=== PATIENT | female | born 1960 | race Caucasian/White ===

== ENCOUNTER 2023-10-07 13:41 | Observation (INO) | payer BC ==
[2023-10-07] MEDS ORDERED: Sodium Chloride 0.9% 1000 ML 1,000 ML IV STA (13:52)
[2023-10-07] MEDS ORDERED: Sodium Chloride 0.9% 1000 ML 1,000 ML ONE (13:55)
--- NOTE | 2023-10-07 14:02 | ERPHSYRPT ---
- History of Present Illness Time Seen by Provider: 10/07/23 13:50 Source: patient, family Exam Limitations: no limitations Patient Subjective Stated Complaint: Pt states "I have been having palpitations and today they seem really fast." Triage Nursing Assessment: Pt presented alert and oriented X 3, skin pwd. PT ambulates with an upright steady gait, able to speak in clear full sentences. pt resting comfortably on the bed without incident. Physician History: 62yo f presents after feeling palpitations starting this AM, roughly 4h prior to presentation. Pt states she has been feeling these palpiations intermittently for several months, but today states her heart rate feels much faster today. Pt's daughter believes she has been sob, pt states she does not feel sob. Pt has seen pcp for these palpitations and is undergoing further w/u w/ cardiology appt scheduled as well as echocardiogram. Pt currently denies any sob, cp, n/v, diaphoresis, ENG, blurry vision. Timing/Duration: today Activities at Onset: none Quality: other (palpitations) Location: other (no pain) Chest Pain Radiation: no radiation Severity of Pain-Max: none Severity of Pain-Current: none Modifying Factors: Improves With: nothing Nitro Today/Relief: no nitro taken today Aspirin Treatment Today: no aspirin today Associated Symptoms: No nausea, No vomiting, No abdominal pain, No shortness of breath, No diaphoresis, No chest pain, No fever, No headaches, No syncope Allergies/Adverse Reactions: No Known Drug Allergies Allergy (Verified 10/07/23 13:53) Home Medications: Alendronate Sodium [Fosamax] 70 mg PO DAILY 10/07/23 [History] Multivitamin 1 each PO DAILY 10/07/23 [History] Hx Tetanus, Diphtheria Vaccination/Date Given: No Hx Influenza Vaccination/Date Given: Yes Hx Pneumococcal Vaccination/Date Given: No Immunizations Up to Date: No Travel Risk - International Travel Have you traveled outside of the country in past 3 weeks: No - Coronavirus Screening Are you exhibiting any of the following symptoms?: No Close contact with a COVID-19 positive Pt in past 14-21 Days: No - Vaccine Status Have you recieved a Covid-19 vaccination: Yes [employer]: [employer] - Vaccination Dates Date of 2cond Vaccination (if applicable): 2020 - Review of Systems Constitutional: No Fever, No Chills, No Fatigue Respiratory: No Symptoms Cardiac: Palpitations, No Chest Pain, No Edema Abdominal/Gastrointestinal: No Abdominal Pain, No Nausea, No Vomiting, No Diarrhea Genitourinary Symptoms: No Dysuria, No Frequency, No Hematuria - Past Medical History Pertinent Past Medical History: Yes Neurological History: No Pertinent History ENT History: No Pertinent History Cardiac History: High Cholesterol Respiratory History: No Pertinent History Endocrine Medical History: No Pertinent History Musculoskeletal History: No Pertinent History GI Medical History: No Pertinent History History: No Pertinent History Psycho-Social History: No Pertinent History Female Reproductive Disorders: Breast Cancer - Past Surgical History Past Surgical History: Yes Other Surgical History: masectomy. tonsils. tubal - Social History Smoking Status: Never smoker Exposure to second hand smoke: No Drug Use: none Patient Lives Alone: Yes - Nursing Vital Signs Nursing Vital Signs: Initial Vital Signs Temperature 97.6 F 10/07/23 13:42 Pulse Rate 173 H 10/07/23 13:42 Respiratory Rate 18 10/07/23 13:42 Blood Pressure 111/96 10/07/23 13:42 O2 Sat by Pulse Oximetry 99 10/07/23 13:42 Pain Scale Pain Intensity 0 - Physical Exam General Appearance: no apparent distress, alert Respiratory Exam: normal breath sounds, lungs clear, airway intact, No chest tenderness Cardiovascular Exam: tachycardia, capillary refill <2 sec, No murmur, No irregular, No edema Gastrointestinal/Abdomen Exam: soft, No tenderness, No distention SpO2 Interpretation: normal SpO2: 99 O2 Delivery: Room Air - Course EKG Interpreted by Me: RATE (174), SVT, Other (no significant ST changes, not suggestive of ischemia) Rhythm Strip: SVT Ordered Tests: Active Orders 24 hr Category Date Time Status Head Cleaning Porter STAT Care 10/07/23 13:54 Active EKG-ER Only STAT Care 10/07/23 13:52 Active IV Insertion STAT Care 10/07/23 13:54 Active Pulse Oximetry (ED) STAT Care 10/07/23 13:52 Active CBC W DIFF Stat Lab 10/07/23 13:50 Completed CMP Stat Lab 10/07/23 13:50 Completed D-DIMER QUANTITATIVE Stat Lab 10/07/23 13:50 Completed NT PRO BNPII Stat Lab 10/07/23 13:50 Completed TROPONIN Q4H Lab 10/07/23 13:50 Completed TROPONIN Q4H Lab 10/07/23 18:00 Ordered TROPONIN Q4H Lab 10/07/23 22:00 Ordered Medication Summary Generic Name Dose Route Start Last Admin Trade Name Gustavo PRN Reason Stop Dose Admin Sodium Chloride 1,000 mls @ 75 mls/hr 10/07/23 14:45 10/07/23 14:42 Sodium Chloride 0.9% 1000 Ml IV 11/06/23 14:44 75 mls/hr .[id number] KRISTIN Administration Discontinued Medications Generic Name Dose Route Start Last Admin Trade Name Sawq PRN Reason Stop Dose Admin Diltiazem HCl 10 mg 10/07/23 14:21 10/07/23 14:22 Diltiazem 25 Mg/5 Ml Vial IV 10/07/23 14:22 Not Given ONCE ONE Diltiazem HCl 10 mg 10/07/23 14:22 10/07/23 14:22 Diltiazem Hcl Iv 5 Mg/Ml Vial IV 10/07/23 14:23 10 mg STAT ONE Administration Diltiazem HCl Confirm 10/07/23 14:21 Diltiazem Hcl Iv 5 Mg/Ml Vial Administered 10/07/23 14:22 Dose 50 mg IV .STK-MED ONE Sodium Chloride 1,000 mls @ 999 mls/hr 10/07/23 13:52 10/07/23 14:58 Sodium Chloride 0.9% 1000 Ml IV 10/07/23 14:52 Infused .Q1H1M STA Infusion Sodium Chloride Confirm 10/07/23 13:55 Sodium Chloride 0.9% 1000 Ml Administered 10/07/23 13:56 Dose 1,000 mls @ ud .ROUTE .STK-MED ONE Lab/Rad Data: Laboratory Result Diagrams 10/07/23 13:50 10/07/23 13:50 Laboratory Results 10/07/23 10/07/23 10/07/23 Range/Units 13:50 13:50 13:50 WBC (4.0-10.5) x10^3/uL RBC (4.1-5.4) x10^6/uL Hgb (12.0-16.0) g/dL Hct (35-47) % MCV (78-100) fL MCH (26-32) pg MCHC (32-36) g/dL RDW (11.5-14.0) % Plt Count (150-450) x10^3/uL MPV (7.5-11.0) fL Gran % (36.0-66.0) % Immature Gran % (Auto) (0.00-0.4) % Nucleat RBC Rel Count (0.00-0.1) % Eos # (Auto) (0-0.5) x10^3/uL Immature Gran # (Auto) (0.00-0.03) x10^3u/L Absolute Lymphs (auto) (1.0-4.6) x10^3/uL Absolute Monos (auto) (0.0-1.3) x10^3/uL Absolute Nucleated RBC (0.00-0.01) x10^3u/L Lymphocytes % (24.0-44.0) % Monocytes % (0.0-12.0) % Eosinophils % (0.00-5.0) % Basophils % (0.0-0.4) % Absolute Granulocytes (1.4-6.9) x10^3/uL Basophils # (0-0.4) x10^3/uL D-Dimer 0.22 (0.0-0.50) mg/L Sodium 139 (137-145) mmol/L Potassium 4.4 (3.5-5.1) mmol/L Chloride 105 (98-107) mmol/L Carbon Dioxide 23 (22-30) mmol/L Anion Gap 15.1 H (5-15) MEQ/L BUN 17 (7-17) mg/dL Creatinine 0.88 (0.52-1.04) mg/dL Estimated GFR 73.8 ML/MIN Glucose 162 H (74-106) mg/dL Calcium 9.6 (8.4-10.2) mg/dL Total Bilirubin 0.90 (0.2-1.3) mg/dL AST 37 H (14-36) U/L ALT 28 (0-35) U/L Alkaline Phosphatase 67 (38-126) U/L Troponin I < 0.012 (0.000-0.034) ng/mL NT-Pro-B Natriuret Pep 789 (<300) pg/mL Serum Total Protein 8.0 (6.3-8.2) g/dL Albumin 4.8 (3.5-5.0) g/dL 10/07/23 Range/Units 13:50 WBC 9.5 (4.0-10.5) x10^3/uL RBC 4.39 (4.1-5.4) x10^6/uL Hgb 14.2 (12.0-16.0) g/dL Hct 43.1 (35-47) % MCV 98.2 (78-100) fL MCH 32.3 H (26-32) pg MCHC 32.9 (32-36) g/dL RDW 12.4 (11.5-14.0) % Plt Count 227 (150-450) x10^3/uL MPV 10.5 (7.5-11.0) fL Gran % 75.1 H (36.0-66.0) % Immature Gran % (Auto) 0.3 (0.00-0.4) % Nucleat RBC Rel Count 0.0 (0.00-0.1) % Eos # (Auto) 0.03 (0-0.5) x10^3/uL Immature Gran # (Auto) 0.03 (0.00-0.03) x10^3u/L Absolute Lymphs (auto) 1.69 (1.0-4.6) x10^3/uL Absolute Monos (auto) 0.57 (0.0-1.3) x10^3/uL Absolute Nucleated RBC 0.00 (0.00-0.01) x10^3u/L Lymphocytes % 17.8 L (24.0-44.0) % Monocytes % 6.0 (0.0-12.0) % Eosinophils % 0.3 (0.00-5.0) % Basophils % 0.5 (0.0-0.4) % Absolute Granulocytes 7.14 H (1.4-6.9) x10^3/uL Basophils # 0.05 (0-0.4) x10^3/uL D-Dimer (0.0-0.50) mg/L Sodium (137-145) mmol/L Potassium (3.5-5.1) mmol/L Chloride (98-107) mmol/L Carbon Dioxide (22-30) mmol/L Anion Gap (5-15) MEQ/L BUN (7-17) mg/dL Creatinine (0.52-1.04) mg/dL Estimated GFR ML/MIN Glucose (74-106) mg/dL Calcium (8.4-10.2) mg/dL Total Bilirubin (0.2-1.3) mg/dL AST (14-36) U/L ALT (0-35) U/L Alkaline Phosphatase (38-126) U/L Troponin I (0.000-0.034) ng/mL NT-Pro-B Natriuret Pep (<300) pg/mL Serum Total Protein (6.3-8.2) g/dL Albumin (3.5-5.0) g/dL - Progress Progress: improved Air Movement: good Progress Note: 10/07/23 14:23 pt vitally stable, asymptomatic, HR improved slightly w/ fluid bolus will give diltiazem bolus, plan to avoid adenosine in elderly asymptomatic pt discussed possibility of admission w/ pt and daughter, both agreeable 10/07/23 14:38 10mg dilt bolus given - repeat ekg showed sinus rhythm 75bpm, no ST changes, qtcb 435 10/07/23 15:08 discussed admission w/ Dr Og who agrees to accept, admit to obs w/ tele Blood Culture(s) Obtained: No Antibiotics given: No Discussed with Dr.: Other (Dr Og) Will see patient in: hospital (observation) Counseled pt/family regarding: lab results, diagnosis, need for follow-up Medical Desision Making - Discussion of managment Care discussed with:: hospitalist Reviewed:: Test results, Need for additional workup Agreed on:: place in obs Will see patient: in hospital - Diagnostic Testing Diagnostic test were ordered, analyzed, and reviewed by me: Yes - Risk of complications The pt has a mod risk of morbidity or mortality based on: Need for prescription drug management - Departure Departure Disposition: Observation Clinical Impression: Sustained SVT Condition: Stable Critical Care Time: No Referrals: JANN NAVARRO NP [Primary Care Provider] - Follow up/PCP as directed
[2023-10-07 14:04] LABS: Absolute Neutrophil Ct (ANC) 7.14 x10^3/uL (1.4-6.9); BASOPHIL % 0.5 % (0.0-0.4); Basophil (Absolute #) 0.05 x10^3/uL (0-0.4); Eosinophil % 0.3 % (0.00-5.0); Eosinophil (Absolute #) 0.03 x10^3/uL (0-0.5); Hematocrit 43.1 % (35-47); Hemoglobin 14.2 g/dL (12.0-16.0); IMMATURE GRAN # 0.03 x10^3u/L (0.00-0.03); IMMATURE GRAN % 0.3 % (0.00-0.4); Lymphocyte (Absolute #) 1.69 x10^3/uL (1.0-4.6); Lymphocytes % 17.8 % (24.0-44.0); Mean Cell Volume 98.2 fL (78-100); Mean Corpuscular Hemoglobin 32.3 pg (26-32); Mean Corpuscular Hgb Concent. 32.9 g/dL (32-36); Mean Platelet Volume 10.5 fL (7.5-11.0); Monocyte (Absolute #) 0.57 x10^3/uL (0.0-1.3); Neutrophil % 75.1 % (36.0-66.0); Platelet Count 227 x10^3/uL (150-450); Red Blood Count 4.39 x10^6/uL (4.1-5.4); Red Cell Distribution Width 12.4 % (11.5-14.0); White Blood Count 9.5 x10^3/uL (4.0-10.5)
[2023-10-07 14:14] LABS: ALBUMIN 4.8 g/dL (3.5-5.0); ANION GAP 15.1 MEQ/L (5-15); BILIRUBIN,TOTAL 0.9 mg/dL (0.2-1.3); Calcium 9.6 mg/dL (8.4-10.2); Creatinine 1 0.88 mg/dL (0.52-1.04); EST GLOMERULAR FILTRATION RATE 73.8 ML/MIN; Potassium 4.4 mmol/L (3.5-5.1)
[2023-10-07] MEDS ORDERED: DILTIAZEM HCL 25 MG/5 ML VIAL IV ONE (14:21)
[2023-10-07] MEDS ORDERED: Cardizem IV 50 MG/10 ML IV ONE ×2 (14:21→14:22)
[2023-10-07 14:26] LABS: NT PRO BNPII 789 pg/mL (<300); TROPONIN < 0.012 ng/mL (0.000-0.034)
[2023-10-07] MEDS ORDERED: Sodium Chloride 0.9% 1000 ML 1,000 ML IV SCH (14:45)
--- NOTE | 2023-10-07 15:56 | PCM.HP ---
History of Present Illness - Chief Complaint Chief Complaint: svt Date: 10/07/23 History of Present Illness: Ms. Solorio is a 62 year old female with a pmhx of HLD and breast cancer who presented to ED 10/07/23 with complaints of racing heart with palpations. Patient reports that she has been having similar episodes for the past several months and is currently scheduled for further evaluation with cardiology. Daughter states she appears to have associated shortness of breath, patient states she does not feel short of breath. She has recently underwent stress test, echo, holter, and cxr. She is scheduled to see Rodriguez Palmer 11/26/23. Today she felt as if her heart was beating faster than previous episodes which prompted her to come to ED. Upon arrival, HR 173. Initial EKG interpreted by ED physician showing SVT with no ischemic changes, ST elevations/deviations HR 174. Patient was given 1 liter fluid bolus and diltiazem with noted improvement. Repeat EKG with NS and again with no ischemic changes, ST elevations/deviations. Lab findings showing BNP at 789, normal initial troponins. Plan for cardiac consult tomorrow and initiate metoprolol. - Review of Systems Constitutional: No Symptoms Eyes: No Symptoms Ears, Nose, & Throat: No Symptoms Respiratory: No Symptoms Cardiac: Other (palpitations intermittently) Abdominal/Gastrointestinal: No Symptoms Genitourinary Symptoms: No Symptoms Musculoskeletal: No Symptoms Skin: No Symptoms Neurological: No Symptoms Psychological: No Symptoms Endocrine: No Symptoms Hematologic/Lymphatic: No Symptoms Immunological/Allergic: No Symptoms Medications & Allergies Home Medications: Home Medication List Alendronate Sodium [Fosamax] 70 mg PO DAILY 10/07/23 [History Confirmed 10/07/23] Multivitamin 1 each PO DAILY 10/07/23 [History Confirmed 10/07/23] Allergies/Adverse Reactions: Allergies Allergy/AdvReac Type Severity Reaction Status Date / Time No Known Drug Allergies Allergy Verified 10/07/23 13:53 - Past Medical History Past Medical History: Yes Neurological History: No Pertinent History ENT History: No Pertinent History Cardiac History: High Cholesterol Respiratory History: No Pertinent History Endocrine Medical History: No Pertinent History Musculoskelatal History: No Pertinent History GI Medical History: No Pertinent History History: No Pertinent History Pyscho-Social History: No Pertinent History Reproductive Disorders: Breast Cancer - Past Surgical History Past Surgical History: Yes Other Surgical History: masectomy. tonsils. tubal - Social History Smoking Status: Never smoker Exposure to second hand smoke: No Alcohol: None Drug Use: none - Physical Exam Vital Signs: Vital Signs - 24 hr Temp Pulse Pulse Resp BP BP Pulse Ox 10/07/23 15:09 99 10/07/23 15:00 66 21 97/74 96 10/07/23 14:50 65 20 96/76 97 10/07/23 14:40 64 15 104/70 97 10/07/23 14:30 66 16 103/74 99 10/07/23 14:15 74 19 117/92 100 10/07/23 14:02 158 H 16 113/91 100 10/07/23 14:00 172 H 20 79/64 98 10/07/23 13:54 99 10/07/23 13:42 97.6 F 173 H 176 H 18 111/96 99 General Appearance: no apparent distress Neurologic Exam: alert, oriented x 3, cooperative Eye Exam: PERRL/EOMI Ears, Nose, Throat Exam: normal ENT inspection Neck Exam: normal inspection Respiratory Exam: normal breath sounds, lungs clear Cardiovascular Exam: regular rate/rhythm, normal heart sounds Gastrointestinal/Abdomen Exam: soft, normal bowel sounds Pelvic Exam: not done Rectal Exam: deferred Back Exam: normal inspection Extremity Exam: normal inspection Skin Exam: normal color Results - Labs Lab/Micro Results: Lab Results-Last 24 Hours 10/07/23 10/07/23 10/07/23 Range/Units 13:50 13:50 13:50 WBC 9.5 (4.0-10.5) x10^3/uL RBC 4.39 (4.1-5.4) x10^6/uL Hgb 14.2 (12.0-16.0) g/dL Hct 43.1 (35-47) % MCV 98.2 (78-100) fL MCH 32.3 H (26-32) pg MCHC 32.9 (32-36) g/dL RDW 12.4 (11.5-14.0) % Plt Count 227 (150-450) x10^3/uL MPV 10.5 (7.5-11.0) fL Gran % 75.1 H (36.0-66.0) % Immature Gran % (Auto) 0.3 (0.00-0.4) % Nucleat RBC Rel Count 0.0 (0.00-0.1) % Eos # (Auto) 0.03 (0-0.5) x10^3/uL Immature Gran # (Auto) 0.03 (0.00-0.03) x10^3u/L Absolute Lymphs (auto) 1.69 (1.0-4.6) x10^3/uL Absolute Monos (auto) 0.57 (0.0-1.3) x10^3/uL Absolute Nucleated RBC 0.00 (0.00-0.01) x10^3u/L Lymphocytes % 17.8 L (24.0-44.0) % Monocytes % 6.0 (0.0-12.0) % Eosinophils % 0.3 (0.00-5.0) % Basophils % 0.5 (0.0-0.4) % Absolute Granulocytes 7.14 H (1.4-6.9) x10^3/uL Basophils # 0.05 (0-0.4) x10^3/uL D-Dimer 0.22 (0.0-0.50) mg/L Sodium 139 (137-145) mmol/L Potassium 4.4 (3.5-5.1) mmol/L Chloride 105 (98-107) mmol/L Carbon Dioxide 23 (22-30) mmol/L Anion Gap 15.1 H (5-15) MEQ/L BUN 17 (7-17) mg/dL Creatinine 0.88 (0.52-1.04) mg/dL Estimated GFR 73.8 ML/MIN Glucose 162 H (74-106) mg/dL Calcium 9.6 (8.4-10.2) mg/dL Total Bilirubin 0.90 (0.2-1.3) mg/dL AST 37 H (14-36) U/L ALT 28 (0-35) U/L Alkaline Phosphatase 67 (38-126) U/L Troponin I (0.000-0.034) ng/mL NT-Pro-B Natriuret Pep (<300) pg/mL Serum Total Protein 8.0 (6.3-8.2) g/dL Albumin 4.8 (3.5-5.0) g/dL 10/07/23 Range/Units 13:50 WBC (4.0-10.5) x10^3/uL RBC (4.1-5.4) x10^6/uL Hgb (12.0-16.0) g/dL Hct (35-47) % MCV (78-100) fL MCH (26-32) pg MCHC (32-36) g/dL RDW (11.5-14.0) % Plt Count (150-450) x10^3/uL MPV (7.5-11.0) fL Gran % (36.0-66.0) % Immature Gran % (Auto) (0.00-0.4) % Nucleat RBC Rel Count (0.00-0.1) % Eos # (Auto) (0-0.5) x10^3/uL Immature Gran # (Auto) (0.00-0.03) x10^3u/L Absolute Lymphs (auto) (1.0-4.6) x10^3/uL Absolute Monos (auto) (0.0-1.3) x10^3/uL Absolute Nucleated RBC (0.00-0.01) x10^3u/L Lymphocytes % (24.0-44.0) % Monocytes % (0.0-12.0) % Eosinophils % (0.00-5.0) % Basophils % (0.0-0.4) % Absolute Granulocytes (1.4-6.9) x10^3/uL Basophils # (0-0.4) x10^3/uL D-Dimer (0.0-0.50) mg/L Sodium (137-145) mmol/L Potassium (3.5-5.1) mmol/L Chloride (98-107) mmol/L Carbon Dioxide (22-30) mmol/L Anion Gap (5-15) MEQ/L BUN (7-17) mg/dL Creatinine (0.52-1.04) mg/dL Estimated GFR ML/MIN Glucose (74-106) mg/dL Calcium (8.4-10.2) mg/dL Total Bilirubin (0.2-1.3) mg/dL AST (14-36) U/L ALT (0-35) U/L Alkaline Phosphatase (38-126) U/L Troponin I < 0.012 (0.000-0.034) ng/mL NT-Pro-B Natriuret Pep 789 (<300) pg/mL Serum Total Protein (6.3-8.2) g/dL Albumin (3.5-5.0) g/dL Assessment/Plan (1) Sustained SVT Current Visit: Yes Status: Acute Assessment & Plan: -Initial EKG with SVT, patient responded to fluid bolus/cardizem, repeat EKG NS -Recent holter/stress test/Echo as op -Cardiology consult, appreciate recs -metoprolol 25mg daily -TSH 09/28/23 WNL -Lipid panel 09/21/23 total choles at 205, LDL 127, consider statin -CXR 09/20/23 with no acute cardiopulmonary processes Code(s): I47.10 - SUPRAVENTRICULAR TACHYCARDIA, UNSPECIFIED (2) HLD (hyperlipidemia) Current Visit: Yes Status: Acute Assessment & Plan: -noted, does not take home meds Code(s): E78.5 - HYPERLIPIDEMIA, UNSPECIFIED (3) Elevated brain natriuretic peptide (BNP) level Current Visit: Yes Status: Acute Assessment & Plan: -BNP at 789 -Echo read pending -Cards consulted Code(s): R79.89 - OTHER SPECIFIED ABNORMAL FINDINGS OF BLOOD CHEMISTRY
[2023-10-07] MEDS ORDERED: TYLENOL 325 MG PO PRN (16:10)
[2023-10-07] MEDS ORDERED: Zofran 4 MG/2 ML VIAL IV PRN (16:10)
[2023-10-07] MEDS: Calcium 500MG W/Vit D Tablet PO SCH (21:46)
[2023-10-07] MEDS ORDERED: TABL PO SCH (22:00)
[2023-10-07] MEDS ORDERED: [UNRECOGNIZED DRUG - OTHER] PO SCH (22:00)
[2023-10-07] MEDS ORDERED: VITAMIN D3 PO SCH (22:00)
[2023-10-07] MEDS ORDERED: CALCIUM CARBONATE PO SCH (22:00)
[2023-10-08 02:29] LABS: Absolute Neutrophil Ct (ANC) 3.32 x10^3/uL (1.4-6.9); BASOPHIL % 0.5 % (0.0-0.4); Basophil (Absolute #) 0.03 x10^3/uL (0-0.4); Eosinophil % 1.2 % (0.00-5.0); Eosinophil (Absolute #) 0.07 x10^3/uL (0-0.5); Hematocrit 36.1 % (35-47); Hemoglobin 11.6 g/dL (12.0-16.0); IMMATURE GRAN # 0.01 x10^3u/L (0.00-0.03); IMMATURE GRAN % 0.2 % (0.00-0.4); Lymphocyte (Absolute #) 1.83 x10^3/uL (1.0-4.6); Mean Cell Volume 99.2 fL (78-100); Mean Corpuscular Hemoglobin 31.9 pg (26-32); Mean Corpuscular Hgb Concent. 32.1 g/dL (32-36); Mean Platelet Volume 10.6 fL (7.5-11.0); Monocyte (Absolute #) 0.46 x10^3/uL (0.0-1.3); Neutrophil % 58.1 % (36.0-66.0); Platelet Count 160 x10^3/uL (150-450); Red Blood Count 3.64 x10^6/uL (4.1-5.4); Red Cell Distribution Width 12.4 % (11.5-14.0); White Blood Count 5.7 x10^3/uL (4.0-10.5)
[2023-10-08 02:44] LABS: ALBUMIN 3.6 g/dL (3.5-5.0); ANION GAP 8.6 MEQ/L (5-15); BILIRUBIN,TOTAL 0.6 mg/dL (0.2-1.3); Calcium 9.4 mg/dL (8.4-10.2); Creatinine 1 0.63 mg/dL (0.52-1.04); EST GLOMERULAR FILTRATION RATE 99.6 ML/MIN; Potassium 3.9 mmol/L (3.5-5.1); Total Protein 6.3 g/dL (6.3-8.2)
[2023-10-08] MEDS: Calcium 500MG W/Vit D Tablet PO SCH (09:00)
[2023-10-08] MEDS ORDERED: Lopressor 25MG Tab PO SCH (10:00)
[2023-10-08] MEDS ORDERED: ENOXAPARIN SODIUM SQ SCH (10:00)
[2023-10-08] MEDS ORDERED: THERAGRAN MULTIVITAMIN PO SCH (10:00)
[2023-10-08] MEDS ORDERED: NON-FORMULARY ITEM (Multivitamin [Multivitamin] 1 EACH Tablet) PO SCH (10:00)
--- NOTE | 2023-10-08 11:15 | PCM.DS ---
Discharge Summary Date of Admission: 10/07/23 15:17 Date of Discharge: 10/08/23 Admitting Physician: NITA GIFFORD MD Consults: Consults on Case 10/07/23 16:20 Consult Cardiology ROUTINE Primary Care Provider: JANN NAVARRO Allergies Allergies No Known Drug Allergies Allergy (Verified 10/07/23 13:53) Hospital Summary - Hospital Course Hospital Course: Ms. Solorio is a 62 year old female with a pmhx of HLD and breast cancer who presented to ED 10/07/23 with complaints of racing heart with palpations. Patient reports that she has been having similar episodes for the past several months and is currently scheduled for further evaluation with cardiology. Daughter states she appears to have associated shortness of breath, patient states she does not feel short of breath. She has recently underwent stress test, echo, holter, and cxr. She is scheduled to see Rodriguez Palmer 11/26/23. Today she felt as if her heart was beating faster than previous episodes which prompted her to come to ED. Upon arrival, HR 173. Initial EKG interpreted by ED physician showing SVT with no ischemic changes, ST elevations/deviations HR 174. Patient was given 1 liter fluid bolus and diltiazem with noted improvement. Repeat EKG with NS and again with no ischemic changes, ST elevations/deviations. HR controlled. Lab findings showing BNP at 789, normal initial troponins. Cardiology consulted, patient cleared for discharge with recs for Metoprolol succinate 25mg daily. Patient advised to follow up with Cardiology as scheduled 10/29/23, and complete NM stress test 10/11/23. Discharge Note New Diagnosis:SVT New Medications: Metoprolol succinate 25mg daily Follow Up: PCP/Cardiology Latest Assessment & Plan (1) Sustained SVT Current Visit: Yes Status: Acute Assessment & Plan: -Initial EKG with SVT, patient responded to fluid bolus/cardizem, repeat EKG NS -Recent holter/stress test/Echo as op -Cardiology consult, appreciate recs -metoprolol 25mg daily -TSH 09/28/23 WNL -Lipid panel 09/21/23 total choles at 205, LDL 127, consider statin -CXR 09/20/23 with no acute cardiopulmonary processes Code(s): I47.10 - SUPRAVENTRICULAR TACHYCARDIA, UNSPECIFIED (2) HLD (hyperlipidemia) Current Visit: Yes Status: Acute Assessment & Plan: -noted, does not take home meds Code(s): E78.5 - HYPERLIPIDEMIA, UNSPECIFIED (3) Elevated brain natriuretic peptide (BNP) level Current Visit: Yes Status: Acute Assessment & Plan: -BNP at 789 -Echo read pending -Cards consulted I spent 35 minutes [id number] with the patient on the day of discharge performing discharge exam, discussing hospital stay and discharge instructions with patient and caregivers, preparation of discharge records, prescriptions & referral forms and addressing any questions/concerns the patient had as documented above. - Vitals & Intake/Output Vital Signs: Vital Signs Temperature 97.7 F 10/08/23 07:28 Pulse Rate 54 L 10/08/23 07:28 Respiratory Rate 17 10/08/23 07:28 Blood Pressure 107/59 10/08/23 07:28 O2 Sat by Pulse Oximetry 94 L 10/08/23 07:28 Intake & Output: Intake & Output 10/05/23 10/06/23 10/07/23 10/08/23 11:59 11:59 11:59 11:59 Intake Total 860 Balance 860 Weight 77.1 kg - Lab Result Diagrams: 10/08/23 02:27 10/08/23 02:27 Lab Results-Last 24 Hrs: Lab Results-Last 24 Hours 10/07/23 10/07/23 10/07/23 Range/Units 13:50 13:50 13:50 WBC 9.5 (4.0-10.5) x10^3/uL RBC 4.39 (4.1-5.4) x10^6/uL Hgb 14.2 (12.0-16.0) g/dL Hct 43.1 (35-47) % MCV 98.2 (78-100) fL MCH 32.3 H (26-32) pg MCHC 32.9 (32-36) g/dL RDW 12.4 (11.5-14.0) % Plt Count 227 (150-450) x10^3/uL MPV 10.5 (7.5-11.0) fL Gran % 75.1 H (36.0-66.0) % Immature Gran % (Auto) 0.3 (0.00-0.4) % Nucleat RBC Rel Count 0.0 (0.00-0.1) % Eos # (Auto) 0.03 (0-0.5) x10^3/uL Immature Gran # (Auto) 0.03 (0.00-0.03) x10^3u/L Absolute Lymphs (auto) 1.69 (1.0-4.6) x10^3/uL Absolute Monos (auto) 0.57 (0.0-1.3) x10^3/uL Absolute Nucleated RBC 0.00 (0.00-0.01) x10^3u/L Lymphocytes % 17.8 L (24.0-44.0) % Monocytes % 6.0 (0.0-12.0) % Eosinophils % 0.3 (0.00-5.0) % Basophils % 0.5 (0.0-0.4) % Absolute Granulocytes 7.14 H (1.4-6.9) x10^3/uL Basophils # 0.05 (0-0.4) x10^3/uL D-Dimer 0.22 (0.0-0.50) mg/L Sodium 139 (137-145) mmol/L Potassium 4.4 (3.5-5.1) mmol/L Chloride 105 (98-107) mmol/L Carbon Dioxide 23 (22-30) mmol/L Anion Gap 15.1 H (5-15) MEQ/L BUN 17 (7-17) mg/dL Creatinine 0.88 (0.52-1.04) mg/dL Estimated GFR 73.8 ML/MIN Glucose 162 H (74-106) mg/dL Hemoglobin A1c (4.5-6.0) % Calcium 9.6 (8.4-10.2) mg/dL Total Bilirubin 0.90 (0.2-1.3) mg/dL AST 37 H (14-36) U/L ALT 28 (0-35) U/L Alkaline Phosphatase 67 (38-126) U/L Troponin I (0.000-0.034) ng/mL NT-Pro-B Natriuret Pep (<300) pg/mL Serum Total Protein 8.0 (6.3-8.2) g/dL Albumin 4.8 (3.5-5.0) g/dL 01/28/24 01/28/24 01/28/24 Range/Units 13:50 15:00 17:40 WBC (4.0-10.5) x10^3/uL RBC (4.1-5.4) x10^6/uL Hgb (12.0-16.0) g/dL Hct (35-47) % MCV (78-100) fL MCH (26-32) pg MCHC (32-36) g/dL RDW (11.5-14.0) % Plt Count (150-450) x10^3/uL MPV (7.5-11.0) fL Gran % (36.0-66.0) % Immature Gran % (Auto) (0.00-0.4) % Nucleat RBC Rel Count (0.00-0.1) % Eos # (Auto) (0-0.5) x10^3/uL Immature Gran # (Auto) (0.00-0.03) x10^3u/L Absolute Lymphs (auto) (1.0-4.6) x10^3/uL Absolute Monos (auto) (0.0-1.3) x10^3/uL Absolute Nucleated RBC (0.00-0.01) x10^3u/L Lymphocytes % (24.0-44.0) % Monocytes % (0.0-12.0) % Eosinophils % (0.00-5.0) % Basophils % (0.0-0.4) % Absolute Granulocytes (1.4-6.9) x10^3/uL Basophils # (0-0.4) x10^3/uL D-Dimer (0.0-0.50) mg/L Sodium (137-145) mmol/L Potassium (3.5-5.1) mmol/L Chloride (98-107) mmol/L Carbon Dioxide (22-30) mmol/L Anion Gap (5-15) MEQ/L BUN (7-17) mg/dL Creatinine (0.52-1.04) mg/dL Estimated GFR ML/MIN Glucose (74-106) mg/dL Hemoglobin A1c 5.47 (4.5-6.0) % Calcium (8.4-10.2) mg/dL Total Bilirubin (0.2-1.3) mg/dL AST (14-36) U/L ALT (0-35) U/L Alkaline Phosphatase (38-126) U/L Troponin I < 0.012 0.050 H* (0.000-0.034) ng/mL NT-Pro-B Natriuret Pep 789 (<300) pg/mL Serum Total Protein (6.3-8.2) g/dL Albumin (3.5-5.0) g/dL 10/07/23 10/08/23 10/08/23 Range/Units 22:05 02:27 02:27 WBC 5.7 (4.0-10.5) x10^3/uL RBC 3.64 L (4.1-5.4) x10^6/uL Hgb 11.6 L (12.0-16.0) g/dL Hct 36.1 (35-47) % MCV 99.2 (78-100) fL MCH 31.9 (26-32) pg MCHC 32.1 (32-36) g/dL RDW 12.4 (11.5-14.0) % Plt Count 160 (150-450) x10^3/uL MPV 10.6 (7.5-11.0) fL Gran % 58.1 (36.0-66.0) % Immature Gran % (Auto) 0.2 (0.00-0.4) % Nucleat RBC Rel Count 0.0 (0.00-0.1) % Eos # (Auto) 0.07 (0-0.5) x10^3/uL Immature Gran # (Auto) 0.01 (0.00-0.03) x10^3u/L Absolute Lymphs (auto) 1.83 (1.0-4.6) x10^3/uL Absolute Monos (auto) 0.46 (0.0-1.3) x10^3/uL Absolute Nucleated RBC 0.00 (0.00-0.01) x10^3u/L Lymphocytes % 32.0 (24.0-44.0) % Monocytes % 8.0 (0.0-12.0) % Eosinophils % 1.2 (0.00-5.0) % Basophils % 0.5 (0.0-0.4) % Absolute Granulocytes 3.32 (1.4-6.9) x10^3/uL Basophils # 0.03 (0-0.4) x10^3/uL D-Dimer (0.0-0.50) mg/L Sodium 136 L (137-145) mmol/L Potassium 3.9 (3.5-5.1) mmol/L Chloride 107 (98-107) mmol/L Carbon Dioxide 24 (22-30) mmol/L Anion Gap 8.6 (5-15) MEQ/L BUN 14 (7-17) mg/dL Creatinine 0.63 (0.52-1.04) mg/dL Estimated GFR 99.6 ML/MIN Glucose 92 (74-106) mg/dL Hemoglobin A1c (4.5-6.0) % Calcium 9.4 (8.4-10.2) mg/dL Total Bilirubin 0.60 (0.2-1.3) mg/dL AST 28 (14-36) U/L ALT 22 (0-35) U/L Alkaline Phosphatase 59 (38-126) U/L Troponin I 0.079 H* (0.000-0.034) ng/mL NT-Pro-B Natriuret Pep (<300) pg/mL Serum Total Protein 6.3 (6.3-8.2) g/dL Albumin 3.6 (3.5-5.0) g/dL 10/08/23 Range/Units 02:27 WBC (4.0-10.5) x10^3/uL RBC (4.1-5.4) x10^6/uL Hgb (12.0-16.0) g/dL Hct (35-47) % MCV (78-100) fL MCH (26-32) pg MCHC (32-36) g/dL RDW (11.5-14.0) % Plt Count (150-450) x10^3/uL MPV (7.5-11.0) fL Gran % (36.0-66.0) % Immature Gran % (Auto) (0.00-0.4) % Nucleat RBC Rel Count (0.00-0.1) % Eos # (Auto) (0-0.5) x10^3/uL Immature Gran # (Auto) (0.00-0.03) x10^3u/L Absolute Lymphs (auto) (1.0-4.6) x10^3/uL Absolute Monos (auto) (0.0-1.3) x10^3/uL Absolute Nucleated RBC (0.00-0.01) x10^3u/L Lymphocytes % (24.0-44.0) % Monocytes % (0.0-12.0) % Eosinophils % (0.00-5.0) % Basophils % (0.0-0.4) % Absolute Granulocytes (1.4-6.9) x10^3/uL Basophils # (0-0.4) x10^3/uL D-Dimer (0.0-0.50) mg/L Sodium (137-145) mmol/L Potassium (3.5-5.1) mmol/L Chloride (98-107) mmol/L Carbon Dioxide (22-30) mmol/L Anion Gap (5-15) MEQ/L BUN (7-17) mg/dL Creatinine (0.52-1.04) mg/dL Estimated GFR ML/MIN Glucose (74-106) mg/dL Hemoglobin A1c (4.5-6.0) % Calcium (8.4-10.2) mg/dL Total Bilirubin (0.2-1.3) mg/dL AST (14-36) U/L ALT (0-35) U/L Alkaline Phosphatase (38-126) U/L Troponin I 0.072 H* (0.000-0.034) ng/mL NT-Pro-B Natriuret Pep (<300) pg/mL Serum Total Protein (6.3-8.2) g/dL Albumin (3.5-5.0) g/dL - Procedures and Test Procedures and Tests throughout Hospitalization: Therapy Orders & Screens 10/07/23 16:10 EKG REPEAT IN AM Comment: Diagnosis: svt Discharge Exam General Appearance: no apparent distress Neurologic Exam: alert, oriented x 3, cooperative Eye Exam: PERRL Ears, Nose, Throat Exam: normal ENT inspection Neck Exam: normal inspection Respiratory Exam: normal breath sounds, lungs clear Cardiovascular Exam: regular rate/rhythm, normal heart sounds Gastrointestinal/Abdomen Exam: soft, normal bowel sounds Pelvic Exam: deferred Rectal Exam: deferred Back Exam: normal inspection Extremity Exam: normal inspection Skin Exam: normal color Final Diagnosis/Problem List - Final Discharge Diagnosis/Problem (1) Sustained SVT Current Visit: Yes Status: Resolved Code(s): I47.10 - SUPRAVENTRICULAR TACHYCARDIA, UNSPECIFIED (2) HLD (hyperlipidemia) Current Visit: Yes Status: Chronic Code(s): E78.5 - HYPERLIPIDEMIA, UNSPECIFIED (3) Elevated brain natriuretic peptide (BNP) level Current Visit: Yes Status: Acute Code(s): R79.89 - OTHER SPECIFIED ABNORMAL FINDINGS OF BLOOD CHEMISTRY - Discharge Disposition: Home, Self-Care Condition: Stable Prescriptions: New Metoprolol Succinate 25 mg Xl* [Toprol-Xl 25MG Tablets] 25 mg PO DAILY 30 Days #30 tab Continue Multivitamin 1 each PO DAILY Alendronate Sodium [Fosamax] 70 mg PO WEEKLY Calcium Carbonate/Vitamin D3 [Caltrate 600 Plus D3 Tablet] 1 each PO BID Follow up with: SHANNA PALMER MD [CONSULTING PHYSICIAN] - 10/29/23 1:00 pm (WITH CARMELLA SWARTZ AT [facility]) JANN NAVARRO NP [Primary Care Provider] - 10/17/23 10:30 am (OFFICE PHONE NUMBER [phone])
[2023-10-08 11:59] VITALS: RESP 16; TEMP 97
[2023-10-08 16:19] VITALS: BP 109/60; PULSE 64; O2SAT 94
--- NOTE | 2023-10-09 10:48 | CONS ---
TELE-CARDIOLOGY CONSULT DATE: 10/08/2023 REASON FOR CONSULT: Supraventricular tachycardia. HISTORY: Sandrine Solorio is a 62-year-old woman who has past medical history of dyslipidemia who presented yesterday afternoon to the emergency department with acute onset of palpitations. She was found to be tachycardic with a heart rate in the 150's with a narrow complex regular tachycardia. She was initiated on diltiazem and had rapid return to normal sinus rhythm. Lab work done during hospitalization was unremarkable including negative cardiac enzymes. NT-Pro-BNP was mildly elevated at 789. She previously had another NT-Pro-BNP that was mildly elevated in the 500's as an outpatient. Otherwise hemoglobin, white blood cell count and PLT count are normal as well as renal function. She has remained in sinus rhythm. Her heart rate is in the high 50's. She has not had any recurrent symptoms. She had an echo done on 10/01/2023 which I personally reviewed which demonstrates structurally normal heart with no significant valvular abnormalities and ejection fraction of approximately 55%. Inferior vena cava is normal. Currently, she has no issues. She has not had any change in her exertional capacity but does report that she had similar palpitations in the past previously maybe once a year. However, now she has been having those more frequently. PAST MEDICAL HISTORY: As noted above. PAST SURGICAL HISTORY: Mastectomy. Tonsillectomy. Tubal ligation. SOCIAL HISTORY: Lifelong nonsmoker. No significant alcohol or illicit drug use. LAB DATA AND TESTS: EKG personally reviewed. EKG demonstrates narrow complex regular tachycardia with heart rate of 174 beats/minute. No obvious P-waves are noted on this EKG. EKG on conversion/rhythm demonstrates sinus rhythm with left anterior fascicular block, normal P-wave morphology and low voltage in precordial leads. Echo totally unremarkable as noted above. 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 2) History of dyslipidemia. 3) Mildly elevated NT-Pro-BNP without any clinical evidence of congestive heart failure. Inferior vena cava is also normal on echo. RECOMMENDATIONS: Start low dose metoprolol succinate 25 mg daily. I also advised her on vagal maneuvers including Valsalva i.e. bearing down and gentle pressure on her eyes in effort to try to break this if it recurs. She can also take an extra metoprolol if symptoms do not resolve with vagal maneuvers. She is okay for discharge and okay to return to normal activities. I will follow up with her in the office.
== END 2023-10-08 18:55 | disposition home or self-care (01) ==
LOC: ED 13:41 → MED SURG 15:17
PROVIDERS: ADMIT Internal Medicine; ATTEND Internal Medicine
DX: I47.10 Supraventricular tachycardia, unspecified (principal); E78.5 Hyperlipidemia, unspecified; R79.89 Other specified abnormal findings of blood chemistry; Z79.899 Other long term (current) drug therapy; Z20.828 Contact with and (suspected) exposure to other viral communicable diseases; Z85.3 Personal history of malignant neoplasm of breast
CPT/HCPCS: 36000; 36415; 80053; 83036; 83880; 84484; 85025; 85379; 93005; 93041; 93268; 94760; 96374; 99285; J1650; Q3014; A9270-GY; G0378